=== PATIENT | male | born 1980 | race Caucasian/White ===

== ENCOUNTER 2018-11-17 18:35 | Emergency (ER) | payer MEDICAID ==
[~2018-11-17] VITALS: Ht 170.2 cm; Wt 83.3 kg
[2018-11-17 18:48] VITALS: BP 133/81; PULSE 73; RESP 19; Ht 170.2 cm; Wt 83.3 kg
--- NOTE | 2018-11-17 21:10 | ERD ---
ER Documentation Chief Complaint Chief Complaint HEAD INJ; HIT OPN HEAD WITH FOOT BALL @1700 YESTERDAY; NAUSEA AND DIZZY NOW HPI 38-year-old male, previously healthy, presents to the emergency department, complaining of right side headache, associated with blurry vision and dizziness, after sustaining a direct blunt trauma with a soccer ball at a very short distance. The incident occurred yesterday while the patient was playing soccer with some friends. Immediately after the accident, he was complaining of dizziness and headache but no nausea or vomiting. Today the patient developed worsening of the dizziness and nausea. No medications taken at this time. ROS All systems reviewed and are negative except as per history of present illness. Medications Home Meds Active Scripts Acetaminophen* (Tylenol*) 325 Mg Tablet, 2 TAB PO Q6 PRN for PAIN AND OR ELEVATED TEMP, #20 TAB Prov:NAYA ALTAMIRANO MD 11/17/18 Meclizine Hcl* (Antivert*) 12.5 Mg Tab, 12.5 MG PO Q6H PRN for DIZZINESS, #20 TAB Prov:NAYA ALTAMIRANO MD 11/17/18 Ibuprofen* (Motrin*) 400 Mg Tab, 400 MG PO Q6H PRN for PAIN AND OR ELEVATED TEMP, #20 TAB Prov:NAYA ALTAMIRANO MD 11/17/18 PMhx/Soc Medical and Surgical Hx: pt denies Medical Hx, pt denies Surgical Hx Hx Alcohol Use: No Hx Substance Use: No Hx Tobacco Use: No Smoking Status: Never smoker FmHx Family History: No diabetes, No coronary disease Physical Exam Vitals Vital Signs Date Temp Pulse Resp B/P (MAP) Pulse Ox O2 O2 Flow FiO2 Time Delivery Rate 11/17/18 97.3 73 19 133/81 99 18:48 (98) Physical Exam Const: No acute distress Head: Atraumatic Eyes: Normal Conjunctiva ENT: Normal External Ears, Nose and Mouth. Neck: Full range of motion. No meningismus. Resp: Clear to auscultation bilaterally Cardio: Regular rate and rhythm, no murmurs Abd: Soft, non tender, non distended. Normal bowel sounds Skin: No petechiae or rashes Back: No midline or flank tenderness Ext: No cyanosis, or edema Neur: Awake and alert Psych: Normal Mood and Affect Results 24 hrs Patient: RUSTY BROWN : 1980 Age: 38 Sex: M [id number] DOS: 11/17/182106 Ordering MD: NAYA ALTAMIRANO MD Location: [facility] Room/Bed: PROCEDURE: CT BRAIN WITHOUT CONTRAST CLINICAL INDICATION: Head conclusion. TECHNIQUE: Transaxial CT examination of the head was performed without intravenous administration of contrast on a GE [employer] helical CT scanner. In addition to the brain and bone windows of transaxial images, multiple sagittal and coronal reformatted images were generated for the interpretation. DICOM images are available. Radiation dose: CTDIvol = 39 mGy; total DLP = 634 mGy-cm. One or more of the following dose reduction techniques were used: - Automated exposure control. - Adjustment of the mA and/or kV according to patient size. - Use of iterative reconstruction technique. COMPARISON: None. FINDINGS: Evaluation of the supratentorial compartment demonstrates no hemorrhage, mass effect, midline shift, or abnormal extra-axial fluid collection. The ventricles are normal in size. An asymmetry of the lateral ventricles is due to the coaptation, which is a normal developmental variant. A slight enlargement of the cortical sulci in a pattern of atrophy is normal for the age. Evaluation of the posterior fossa reveals no hemorrhage or mass effect. A slight atrophic change is compatible with the age of patient. The cerebellar tonsils are in normal position relative to the foramen magnum. There is no depressed or vertically oriented skull fracture. Bilateral mastoid air cells and the visualized paranasal sinuses are normally aerated. IMPRESSION: 1. No intracranial hemorrhage, appreciable cerebral contusion, or hydrocephalus. 2. No depressed skull fracture. Procedures/MDM Vital signs stable. Differential diagnosis include but not limited to: Head concussion, contusion, skull fracture, vertebral fracture, intracranial hemorrhage. Physical examination and clinical presentation consistent most likely with head contusion. a Head CT was ordered based on the following reason: Persistent dizziness and nausea with a dangerous mechanism. During the ED course the patient remained stable, no new complaints. The patient was instructed to follow up with the primary care provider in the next 48h. If symptoms persist, worsen or new symptoms develop like nausea, vomiting, behavioral changes, and lethargy, then patient should return to the ED immediately. Instructions explained and given directly by me to the mother with acknowledgment and demonstrated understanding. Disclaimer: Inadvertent spelling and grammatical errors are likely due to EHR/dictation software use and do not reflect on the overall quality of patient care. Also, please note that the electronic time recorded on this note does not necessarily reflect the actual time of the patient encounter. Departure Diagnosis: Primary Impression: Acute head injury Condition: Stable Additional Instructions: Muchas josephine por [facility] para ansari servicio. Esperamos que en ansari visita a la miles de emergencia ansari problema medico haya sido solucionado y que se sienta mucho mejor. Para estar seguros que ansari mejoria sigue en proceso, le pedimos el favor de hacer michelle freya de seguimiento medico con ansari doctor primario en los proximos 2-4 dill. Lleve con usted estos documentos y las medicinas recetadas. Si garret sintomas empeoran, NO SE ESPERE, por favor regrese a miles de emergencia INMEDIATAMENTE. En irene que usted no tenga un mdico de atencin primaria: Llame al mdico o clnica comunitaria de referencia que aparece abajo qi las horas de consultorio para hacer michelle freya para que le vean. CLINICAS: [facility] [phone] [facility] [phone] [facility] [phone] [facility] [phone] [facility] [phone] [address] [facility]. [phone] MD Nov 17, 2018 21:10
[2018-11-17] MEDS ORDERED: IBUP-1561 PO (22:07)
[2018-11-17] MEDS ORDERED: ACET325T33 PO (22:07)
[2018-11-17] MEDS ORDERED: MECL12.574 PO (22:07)
== END 2018-11-17 22:17 | disposition home or self-care (01) ==
LOC: FTE 18:35
DX: S09.90XA Unspecified injury of head, initial encounter (principal); R51 Headache; W21.02XA Struck by soccer ball, initial encounter; Y92.322 Soccer field as the place of occurrence of the external cause
CPT/HCPCS: 70450; Z7502

== ENCOUNTER 2018-11-21 18:21 | Emergency (ER) | payer MEDICAID ==
[~2018-11-21] VITALS: Ht 165.1 cm; Wt 83.5 kg
[~2018-11-21 18:21] MED LIST: ACET325T33 PO; IBUP-1561 PO; MECL12.574 PO
[2018-11-21 18:28] VITALS: Ht 165.1 cm; Wt 83.5 kg
[2018-11-21] MEDS ORDERED: ONDANSETRON (ODT) 4 MG TAB ODT STA (21:51)
[2018-11-21] MEDS ORDERED: MECLIZINE 12.5 MG TAB PO ONE (23:00)
[2018-11-21] MEDS ORDERED: MECL-77 PO (23:09)
[2018-11-21] MEDS ORDERED: ONDA4TAB14 PO (23:09)
[2018-11-21 23:40] VITALS: BP 134/87; PULSE 78; RESP 18
[2018-11-21] MEDS ORDERED: LORA-441 PO (23:41)
--- NOTE | 2018-11-21 23:45 | ERD ---
ER Documentation Chief Complaint Chief Complaint n/v w/ vertigo x5 days. was seen here for same on Saturday HPI 38-year-old male no significant past medical history presents for dizziness x5 days. He was seen here in the ER a few days ago for a injury, he was hit by soccer ball in the head while playing soccer. The CT head at that time was negative. Patient states that he was given meclizine which she has been taking which initially helped his symptoms however he states that the last day or 2 the symptoms have persisted. He has been vomiting a few times. Denies chest pain or shortness of breath. Denies confusion. No other modifying factors noted. No other treatments tried at home. ROS All systems reviewed and are negative except as per history of present illness. Medications Home Meds Active Scripts Lorazepam* (Ativan*) 0.5 Mg Tablet, 0.5 MG PO BID PRN for anxiety/dizziness, #10 TAB Prov:BÁRBARA HYMAN DO 11/21/18 Ondansetron (Ondansetron Odt) 4 Mg Tab.rapdis, 4 MG PO Q6H PRN for NAUSEA AND/OR VOMITING, #20 TAB Prov:BÁRBARA HYMAN DO 11/21/18 Meclizine Hcl* (Meclizine Hcl*) 25 Mg Tablet, 25 MG PO Q6H PRN for DIZZINESS, #30 TAB Prov:BÁRBARA HYMAN DO 11/21/18 Acetaminophen* (Tylenol*) 325 Mg Tablet, 2 TAB PO Q6 PRN for PAIN AND OR ELEVATED TEMP, #20 TAB Prov:NAYA ALTAMIRANO MD 11/17/18 Meclizine Hcl* (Antivert*) 12.5 Mg Tab, 12.5 MG PO Q6H PRN for DIZZINESS, #20 TAB Prov:NAYA ALTAMIRANO MD 11/17/18 Ibuprofen* (Motrin*) 400 Mg Tab, 400 MG PO Q6H PRN for PAIN AND OR ELEVATED TEMP, #20 TAB Prov:NAYA ALTAMIRANO MD 11/17/18 Allergies Allergies: Coded Allergies: No Known Allergy (Unverified , 11/21/18) PMhx/Soc Medical and Surgical Hx: pt denies Medical Hx, pt denies Surgical Hx Hx Alcohol Use: No Hx Substance Use: No Hx Tobacco Use: No Smoking Status: Never smoker Physical Exam Vitals Vital Signs Date Temp Pulse Resp B/P (MAP) Pulse Ox O2 O2 Flow FiO2 Time Delivery Rate 11/21/18 97.4 98 18 142/89 97 18:28 (106) Physical Exam Const: No acute distress Head: Atraumatic Eyes: Normal Conjunctiva, PERRLA, EOMI ENT: Normal External Ears, Nose and Mouth. Neck: Full range of motion. No meningismus. Resp: Clear to auscultation bilaterally Cardio: Regular rate and rhythm, no murmurs, peripheral pulses intact and equal Abd: Soft, non tender, non distended. Normal bowel sounds Skin: No petechiae or rashes Back: No midline or flank tenderness Ext: No cyanosis, or edema, 5 out of 5 history of bilateral upper and lower extremities Neur: Awake and alert, bilateral upper and lower tremors sensation intact Psych: Normal Mood and Affect Results 24 hrs Current Medications Medications Dose Sig/David Start Time Status Last (Trade) Ordered Route PRN Stop Time Admin Dose Reason Admin Ondansetron 4 mg ONCE STAT 11/21/18 DC 11/21/18 HCl (Zofran ODT 21:51 11/21/18 22:06 Odt) 21:52 Meclizine 25 mg ONCE ONCE 11/21/18 DC 11/21/18 HCl PO 23:00 11/21/18 22:58 (Antivert) 23:01 Procedures/MDM Medical Decision Making: Differential diagnosis includes but not limited to vertigo, concussion, head injury Patient appeared well on physical exam. ED course: Patient was given Zofran, meclizine. Symptoms improved with treatment. Prescription(s): Patient given prescription for supportive medication(s) and low-dose short course Ativan. Patient advised to follow up with PCP in 1-2 days. Patient advised to return to ED for new or worsening symptoms. Patient stable on discharge from the ED. Disclaimer: Inadvertent spelling and grammatical errors are likely due to EHR/dictation software use and do not reflect on the overall quality of patient care. Also, please note that the electronic time recorded on this note does not necessarily reflect the actual time of the patient encounter. Departure Diagnosis: Primary Impression: Dizziness Additional Impression: Nausea Condition: Fair Patient Instructions: Dizziness (Vertigo) and Balance Problems: Ensuring Your Safety Referrals: [facility] (PCP) Additional Instructions: Call your primary care doctor TOMORROW for an appointment during the next 1-2 days.See the doctor sooner or return here if your condition worsens before your appointment time. BÁRBARA HYMAN DO November 21, 2018 23:45
== END 2018-11-21 23:51 | disposition home or self-care (01) ==
LOC: FTE 18:21
DX: R42 Dizziness and giddiness (principal)
CPT/HCPCS: Z7502; Z7610; 99283